=== PATIENT | female | born 1970 | race Two or more races ===

== ENCOUNTER 2017-09-06 10:30 | Emergency (ER) | payer MEDICAID ==
[~2017-09-06] VITALS: Ht 157.5 cm; Wt 87.0 kg
[~2017-09-06 10:30] MED LIST: ACET325T14 PO; ETAN25DI IM; IRON1TAB2 PO; LEVO50TA5 PO; METH4TAB6 PO; MINO100T2 PO; OXYC-302 PO; SENN-52 PO; SIME80TA16 PO; SULF500T47 PO
[2017-09-06] MEDS ORDERED: MORPHINE SULFATE 4 MG/ML, 1ML ONE (11:57)
[2017-09-06] MEDS ORDERED: ASPIRIN 81 MG TABLET CHEW ONE (11:57)
[2017-09-06] MEDS ORDERED: ASPIRIN 81 MG TABLET CHEW PO ONE (12:00)
[2017-09-06] MEDS ORDERED: ONDANSETRON ODT 4 MG PO ONE (12:00)
[2017-09-06] MEDS ORDERED: MORPHINE SULFATE 4 MG/ML, 1ML IVPush PRN (12:00)
[2017-09-06] MEDS ORDERED: ONDANSETRON ODT 4 MG ONE (12:00)
[2017-09-06] MEDS ORDERED: SODIUM CHLORIDE FLUSH 10ML SYR IVF ONE (12:00)
[2017-09-06 12:17] LABS: BASOPHILS # (AUTO) 0.06 x10^3/uL (0-0.1); BASOPHILS % (AUTO) 1 % (0-1); EOSINOPHILS # (AUTO) 0.02 x10^3/uL (0-0.4); EOSINOPHILS % (AUTO) 0 % (1-7); LYMPHOCYTES # (AUTO) 1.75 x10^3/uL (1-3.4); LYMPHOCYTES % (AUTO) 27 % (22-44); MD NO; MEAN CORPUSCULAR HEMOGLOBIN 32.2 pg (27.0-34.8); MEAN CORPUSCULAR VOLUME 91.8 fL (80-100); MONOCYTES # (AUTO) 0.43 x10^3/uL (0.2-0.8); MONOCYTES % (AUTO) 7 % (2-9); NEUTROPHILS # (AUTO) 4.13 x10^3/uL (1.8-6.8); NEUTROPHILS % (AUTO) 65 % (42-75); PLATELET COUNT 255 x10^3/uL (130-400); RED BLOOD COUNT 4.18 x10^6/uL (3.82-5.3); RED CELL DISTRIBUTION WIDTH 15.2 % (9.6-15.2)
[2017-09-06 12:25] LABS: ALBUMIN 4.2 g/dL (3.4-5.0); ANION GAP 7 mmol/L (5-15); CALCIUM 9.1 mg/dL (8.5-10.1); CHLORIDE 110 mmol/L (98-107); CREATININE 0.65 mg/dL (0.55-1.02)
[2017-09-06 12:29] LABS: TROPONIN I < 0.015 ng/mL (0.000-0.045)
[2017-09-06] MEDS ORDERED: KETOROLAC 30 MG/1 ML IVPush ONE (13:30)
[2017-09-06] MEDS ORDERED: KETOROLAC 30 MG/1 ML ONE (13:31)
[2017-09-06] MEDS ORDERED: IBUP-1222 PO (13:50)
[2017-09-06 14:10] VITALS: BP 114/78
== END 2017-09-06 14:22 | disposition home or self-care (01) ==
LOC: ED 13:10
DX: R07.89 Other chest pain (principal); G89.29 Other chronic pain; M06.9 Rheumatoid arthritis, unspecified; M79.7 Fibromyalgia
CPT/HCPCS: 36415; 71045; 80048; 82040; 83880; 84484; 85025; 93005; 96374; 99285; Q0162

== ENCOUNTER 2018-09-01 17:43 | Emergency (ER) | payer MEDICAID ==
[~2018-09-01] VITALS: Ht 162.6 cm; Wt 87.5 kg
[~2018-09-01 17:43] MED LIST changes: +IBUP-1222 PO
[2018-09-01 17:46] VITALS: BP 157/99
[2018-09-01] MEDS ORDERED: KETOROLAC 30 MG/1 ML IM ONE (18:00)
[2018-09-01] MEDS ORDERED: KETOROLAC 30 MG/1 ML ONE (18:24)
--- NOTE | 2018-09-01 18:48 | NUR ---
REPORT TO [facility]OOK[facility]
== END 2018-09-01 18:57 | disposition home or self-care (01) ==
LOC: ED 18:51
DX: M25.462 Effusion, left knee (principal); M25.562 Pain in left knee; M06.9 Rheumatoid arthritis, unspecified; G89.29 Other chronic pain
CPT/HCPCS: 73564; 96372; 99283; J1885